=== PATIENT | female | born 1975 | race Caucasian/White ===

== ENCOUNTER → 2019-09-22 | Outpatient (CLI) | payer BC ==
--- NOTE | 2019-09-22 20:21 | CONS ---
CONSULTATION DATE OF SERVICE: 09/22/2019 This patient is a 44-year-old lady who has been evaluated for obstructive sleep apnea- hypopnea syndrome. HISTORY OF PRESENT ILLNESS/SLEEP-WAKE EVALUATION: Patient has a history of obstructive sleep apnea diagnosed about 10 years ago. At that time she was started on treatment with CPAP, but she did not feel comfortable with the machine and was not able to use it. Also at that time she lost weight and started to sleep better. At present, her weight has increased again and she has symptoms of sleep apnea. Her sleep schedule on weekdays is from 10 p.m. to 6 or 7 a.m. and on weekends from midnight until 9 a.m. Sometimes she has problems with falling asleep, although there is no TV in the bedroom. She sleeps in different positions, including side and stomach. She snores. She grinds her teeth and has episodes of restless legs. She wakes up from sleep 2 times with nocturia. She also has legs thrashing. No history of hypnagogic hallucinations, sleep paralysis or cataplexy. In the morning the patient wakes up tired, has difficulties paying attention, has problems with memory, concentration, irritability, depression. [place] Sleepiness Scale is increased at 10. PAST MEDICAL HISTORY: Hypertension. Not on the control with several medications, according to patient. Pre-diabetes, hyperlipidemia, history of asthma. PAST SURGICAL HISTORY: Cholecystectomy, endometrial ablation, left lung resection for benign tumor many years ago, tubal ligation. MEDICATIONS: Qvar inhaler, amlodipine, metformin, Viibryd, atorvastatin, metoprolol. SOCIAL HISTORY: Negative for smoking or using alcohol. FAMILY HISTORY: Headaches, insomnia, mental illness. REVIEW OF SYSTEMS: Awakenings from sleep, sleepiness during the day. PHYSICAL EXAMINATION: GENERAL: A pleasant lady without distress. VITAL SIGNS: BP 137/89, HR 72, RR 16, height 5 feet 3 inches, weight 285. Body mass index 50.4. Temperature 98.0, oxygen saturation at room air 96%. HEENT: PERRLA, EOMI. Evaluation of oropharynx showed tongue protrudes midline. Low position of soft palate. Mallampati IV. NECK: Supple. No JVD. Thyroid is not palpable. Neck measures 15-1/2 inches in circumference. LUNGS: Clear to percussion and to auscultation. Good air exchange. No wheezing or rhonchi. HEART: S1, S2 regular. No murmurs, gallops or rubs. ABDOMEN: Obese. EXTREMITIES: No clubbing or cyanosis. TURRET LATHE OPERATOR: Awake, alert, and oriented X3. Cranial nerves 2 to 7 intact. There is no fasciculation or atrophy. noted. No focal deficits observed. IMPRESSION: 1. Snoring, multiple awakenings from sleep, low position of soft palate, history of obstructive sleep apnea in the past, sleepiness; obstructive sleep apnea-hypopnea syndrome. 2. Morbid obesity; BMI 50.4. 3. Asthma. 4. Hypertension. 5. History of pre-diabetes. 6. Hyperlipidemia. 7. Status post cholecystectomy. 8. Status post endometrial ablation. 9. 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 10.Status post tubal ligation. PLAN: 1. Polysomnography for evaluation of patient's breathing during sleep. 2. CPAP/BiPAP titration if sleep study confirms obstructive sleep apnea-hypopnea syndrome. 3. Preferable position during sleep on the side. 4. No driving if patient feels any sleepiness. 5. I will see patient for follow up visit to explain results of testing and following plan. Thank you very much for referring this patient for consultation. Sincerely, Chaparro Hernandez MD, PhD, FAASM Diplomat of Citizen Of [place] Board of Medical Specialties Citizen Of [place] Board of Internal Medicine Weight And Test Bar Clerk of [facility] [place] MMODL / GALLON: [id number] /
== END | disposition home or self-care (01) ==
LOC: SLEEP 15:01
PROVIDERS: ATTEND Internal Medicine
DX: G47.33 Obstructive sleep apnea (adult) (pediatric) (principal); E66.01 Morbid (severe) obesity due to excess calories; Z68.43 Body mass index [BMI] 50.0-59.9, adult; J45.909 Unspecified asthma, uncomplicated; I10 Essential (primary) hypertension; E78.5 Hyperlipidemia, unspecified; Z86.39 Personal history of other endocrine, nutritional and metabolic disease; Z90.49 Acquired absence of other specified parts of digestive tract; Z98.51 Tubal ligation status; Z90.2 Acquired absence of lung [part of]; Z98.890 Other specified postprocedural states; Z79.84 Long term (current) use of oral hypoglycemic drugs; Z79.899 Other long term (current) drug therapy
CPT/HCPCS: 99211

== ENCOUNTER → 2020-01-11 | Outpatient (CLI) | payer BC ==
--- NOTE | 2020-01-11 20:43 | SFUN ---
SLEEP CENTER FOLLOW UP NOTE DATE OF SERVICE: 01/11/2020 This is a 44-year-old lady who has been followed in the sleep Center for treatment of obstructive sleep apnea-hypopnea syndrome. Recently, patient had a diagnostic sleep study and CPAP titration and after that she was started on treatment with CPAP. Today is her first visit after she was started on CPAP therapy. Patient feels better while she is using CPAP, sleeping better and feels better during the day. [place] Sleepiness Scale today is 8. I checked the CPAP unit. Range of the pressure 4-10, average pressure 8.8, usage 29/30 nights for more than 4 hours with average usage 7.6 hours per night, which is good hours. Leak is absent at 0 L/minute and apnea-hypopnea index is only 0.8, which is perfect. I spent 25 minute with the patient. MEDICATIONS: Amlodipine 10 mg once a day, metformin 500 mg once a day, Atorvastatin 20 mg once a day, metoprolol 10 mg twice a day. PHYSICAL EXAMINATION: GENERAL: A pleasant patient without any distress. VITAL SIGNS: BP 158/76, HR 68, RR 15, weight 291, temp 98.2, oxygen saturation at room air 99%. HEENT: PERRLA, EOMI, evaluation of oropharynx showed tongue protrudes midline. Low position of soft palate. NECK: Supple, no JVD. Thyroid is not palpable. LUNGS: Clear to percussion and to auscultation. Good air exchange. No wheezing or rhonchi. HEART: S1, S2 regular. No murmurs, gallops, or rubs. Obese. ABDOMEN: Soft and nontender. Bowel sounds are present. No organomegaly appreciated. EXTREMITIES: No clubbing or cyanosis. TIRE SPOTTER: Awake, alert, and oriented X3. Cranial nerves 2 to 7 intact. There is no fasciculation or atrophy. noted. No focal deficits observed. IMPRESSION: 1. Obstructive sleep apnea-hypopnea syndrome. Patient demonstrated practically 100% compliance with treatment and benefitting from treatment. 2. Obesity. 3. Asthma. 4. Hypertension. 5. Hyperlipidemia. 6. Status post cholecystectomy. PLAN: 1. Patient will continue to use PAP equipment every night for the whole night. 2. Sleep hygiene with regular time in bed for at least 7-1/2 to 8 hours. 3. Precautions related to driving. No driving if feeling sleepiness. 4. I will maintain all necessary prescription for PAP supplies including mask, tube, filters. 5. Watching weight. 6. No driving if feeling sleepiness. 7. Follow-up visit in 6 months or earlier if patient has any problems. Thank you very much for allowing me to participate in the management of your patient. Sincerely, Chaparro Hernandez MD, PhD, FAASM Diplomat of [place] Board of Medical Specialties [place] Board of Internal Medicine Instructional Technology Facilitator of [facility] [place] MMODL / IJN: [id number] /
== END | disposition home or self-care (01) ==
LOC: SLEEP 13:46
PROVIDERS: ATTEND Internal Medicine
DX: G47.33 Obstructive sleep apnea (adult) (pediatric) (principal); J45.909 Unspecified asthma, uncomplicated; I10 Essential (primary) hypertension; E78.5 Hyperlipidemia, unspecified; E66.9 Obesity, unspecified; Z90.49 Acquired absence of other specified parts of digestive tract; Z99.89 Dependence on other enabling machines and devices; Z79.899 Other long term (current) drug therapy; Z79.84 Long term (current) use of oral hypoglycemic drugs

== ENCOUNTER → 2020-08-23 | Outpatient (CLI) | payer BC ==
--- NOTE | 2020-08-23 22:40 | SFUN ---
SLEEP CENTER FOLLOW UP NOTE DATE OF SERVICE: 08/23/2020 45-year-old lady has been followed in Sleep Center for treatment of obstructive sleep apnea-hypopnea syndrome. Patient continued to use her CPAP equipment every night for the whole night. No snoring with the machine. The patient received her supplies. [place] Sleepiness Scale slightly increased today to 10. I checked her CPAP unit. Range of the pressure 4-10, average 9 cm of water. Usage is every night and 29 out of 30 nights for more than 4 hours, averaged 7.1 hours per night. Leak is only 1 L/minute. Apnea-hypopnea index 0.6, which is absolutely perfect. MEDICATIONS: Metoprolol 10 mg twice a day, hydrochlorothiazide 25 mg once a day, metformin 500 mg once a day, atorvastatin 20 mg once a day, Q-Yumiko inhaler. PHYSICAL EXAMINATION: GENERAL: Patient in no distress. BP 132/82, HR 78, RR15, height 5 feet 3-1/2 inches, weight 292 pounds, BMI 50.9, temperature 97.2, oxygen saturation on room air 96%. HEENT: Oropharynx low position of soft palate. NECK: Supple, no JVD. Thyroid is not palpable. LUNGS: Clear to percussion and to auscultation. Good air exchange. No wheezing or rhonchi. HEART: S1, S2 regular. No murmurs, gallops, or rubs. ABDOMEN: Obese. Soft and nontender. Bowel sounds are present. No organomegaly appreciated. EXTREMITIES: No clubbing or cyanosis. SINTERING PRESS OPERATOR: Awake, alert, and oriented X3. Cranial nerves 2 to 7 intact. There is no fasciculation or atrophy. noted. No focal deficits observed. IMPRESSION: 1. Obstructive sleep apnea-hypopnea syndrome. Patient demonstrated great compliance with treatment benefitting from treatment, normal respiration on CPAP. 2. Obesity. 3. Asthma. 4. Hypertension. 5. Hyperlipidemia. 6. Status post cholecystectomy. PLAN: 1. Patient will continue to use PAP equipment every night for the whole night. 2. Sleep hygiene with regular time in bed for at least 7-1/2 to 8 hours. 3. Precautions related to driving. No driving if feeling sleepiness. 4. I will maintain all necessary prescription for PAP supplies including mask, tube, filters. 5. Watching weight. 6. Follow-up visit in 6 months or earlier if patient has any problems. Thank you very much for allowing me to participate in management of your patient. Sincerely, Chaparro Hernandez MD, PhD, FAASM Diplomat of [place] Board of Medical Specialties [place] Board of Internal Medicine Licensed Nursing Assistant of [facility] [place] MMCLAUDINEL / MEGGAN: [id number] /
== END ==
LOC: SLEEP 15:35
PROVIDERS: ATTEND Internal Medicine
DX: G47.33 Obstructive sleep apnea (adult) (pediatric) (principal); E66.9 Obesity, unspecified; J45.909 Unspecified asthma, uncomplicated; I10 Essential (primary) hypertension; E78.5 Hyperlipidemia, unspecified; Z90.49 Acquired absence of other specified parts of digestive tract; Z79.899 Other long term (current) drug therapy; Z68.43 Body mass index [BMI] 50.0-59.9, adult

== ENCOUNTER → 2021-03-07 | Outpatient (CLI) | payer BC ==
--- NOTE | 2021-03-07 22:22 | SFUN ---
SLEEP CENTER FOLLOW UP NOTE DATE OF SERVICE: 03/07/2021 45-year-old lady has been followed in Sleep Center for treatment of obstructive sleep apnea-hypopnea syndrome. Patient continued to use her CPAP equipment every night. No problems with getting supplies. No snoring. [place] Sleepiness Scale slightly increased today to 10. I checked her CPAP unit. Range of the pressure 4-10, average pressure 9.5 cm of water. Usage is 100% of nights more than 4 hours, average 7.2 hours per night. Leak is 0 L/minute which is absolutely perfect. Apnea-hypopnea index 0.5 which is totally normal. Air filter in good shape. MEDICATIONS: Metoprolol 10 mg twice a day, hydrochlorothiazide 25 mg once a day, metformin 500 once a day, atorvastatin 20 mg lasted at once a day, amlodipine once a day. PHYSICAL EXAMINATION: GENERAL: Patient in no distress. BP 132/93, HR 69, RR 18, height 5 feet 4 inches, weight 297.2, body mass index 50.9, the patient increased her weight on about 5 pounds since previous visit. Temperature 97.5, oxygen saturation at room air 97%. Oropharynx: Low position of soft palate. NECK: Supple, no JVD. Thyroid is not palpable. LUNGS: Clear to percussion and to auscultation. Good air exchange. No wheezing or rhonchi. HEART: S1, S2 regular. No murmurs, gallops, or rubs. ABDOMEN: Soft and nontender. Bowel sounds are present. No organomegaly appreciated. EXTREMITIES: No clubbing or cyanosis. CORPORATE TRAVEL CONSULTANT: Awake, alert, and oriented X3. Cranial nerves 2 to 7 intact. There is no fasciculation or atrophy. noted. No focal deficits observed. IMPRESSION: 1. Obstructive sleep apnea-hypopnea syndrome patient demonstrated 100% compliance with treatment. Normal respiration on CPAP. 2. Obesity, patient increased weight 5 pounds body mass index 50.9. 3. Asthma. 4. Hypertension. 5. Hyperlipidemia. 6. Status post cholecystectomy. PLAN: Thank you very much for allowing me to participate in management of your patient. Sincerely, Chaparro Hernandez MD, PhD, FAASM Diplomat of [place] Board of Medical Specialties Sleep Medicine Board of [place] Board of Internal Medicine Director Of Medicare of [facility] [place] MMODL / IJN: [id number] /
== END | disposition home or self-care (01) ==
LOC: SLEEP 11:12
PROVIDERS: ATTEND Internal Medicine
DX: G47.33 Obstructive sleep apnea (adult) (pediatric) (principal); E66.9 Obesity, unspecified; J45.909 Unspecified asthma, uncomplicated; I10 Essential (primary) hypertension; E78.5 Hyperlipidemia, unspecified; Z68.43 Body mass index [BMI] 50.0-59.9, adult; Z90.49 Acquired absence of other specified parts of digestive tract

== ENCOUNTER → 2021-09-05 | Outpatient (CLI) | payer BC ==
--- NOTE | 2021-09-05 11:49 | P.PN ---
Subjective DATE: 09/05/2021 FOLLOW UP VISIT. Patient with obstructive sleep apnea hypopnea syndrome return to sleep center for follow-up visit. Information from previous visit have been reviewed. Patient is using PAP equipment every night for the whole night, getting PAP supplies in time. The patient does not have significant problems with the mask, PAP unit and humidification. [place] sleepiness scale is 8. I checked PAP unit. PAP unit pressure 4-10 average 9.8 cm H2O. Usage is 100 % for more then 4 hours, average 7.5 hours per night. Leak is 2 l/m, which is in acceptable range. Apnea Hypopnea Index is 0.6, which is perfect. MEDICATIONS:1. Hydrochlorothiazide 25 mg once a day 2. Amlodipine 2.5 mg once a day 3. Metoprolol extended release 25 mg twice a day 4. Atorvastatin 40 mg once a day 5. Vibryd 40 mg once a day During physical exam: GENERAL: A pleasant patient without any distress. VITAL SIGNS: BP 116/70, HR 67, RR 16 , weight 305.8, temperature 97.5, oxygen saturation at room air 97 % . HEENT: PERRLA, EOMI.low position of soft palate, Mallapati 34 . NECK: Supple. No JVD. LUNGS: Clear to percussion and to auscultation. Good air exchange. No wheezing or rhonchi. HEART: S1, S2 regular. ABDOMEN: Soft and nontender. Obese EXTREMITIES: No clubbing or cyanosis. LIPCOAT SPRAYER: Awake, alert, and oriented x3. No focal deficit. Impressions: 1. Obstructive sleep apnea-hypopnea syndrome. Patient demonstrated great compliance with treatment, benefiting from treatment. 2. Obesity. 3. Hypertension. 4. Asthma. 5. Hyperlipidemia. 6. Status post cholecystectomy. Plan: 1. Continue using PAP equipment every night for the whole night. 2. To change air filter at least 1-2 times per month. 3. PAP unit should stay lower then position of the head. 4. Advised patient to remove all remaining water from humidifier canister daily and make it dry after each usage. Refill canister with fresh distilled water before each usage. 5. Sleep hygiene with regular time in bed for at least 8 hours. 6. Precautions related to driving. No driving if feel any sleepiness. 7. I will maintain prescription for PAP supplies including mask, tube, filters. 8. Follow up visit in 6 months or earlier if patient has any problems. 9. Watching weight. Thank you very much for allowing me to participate in the management of your patient. Chaparro Hernandez MD, PhD, FAASM. Diplomat of [place] Board of Sleep Medicine, Sleep Medicine Board by [place] Board of Internal Medicine Inflatable Buildings Laminator of [facility] [place]
== END | disposition home or self-care (01) ==
LOC: SLEEP 11:14
PROVIDERS: ATTEND Internal Medicine
DX: G47.33 Obstructive sleep apnea (adult) (pediatric) (principal); E66.9 Obesity, unspecified; I10 Essential (primary) hypertension; J45.909 Unspecified asthma, uncomplicated; E78.5 Hyperlipidemia, unspecified; Z90.49 Acquired absence of other specified parts of digestive tract
CPT/HCPCS: 99212

== ENCOUNTER → 2022-05-21 | Outpatient (CLI) | payer BC ==
--- NOTE | 2022-05-27 08:17 | MM ---
Reason for Exam: Screening (asymptomatic). Last mammogram was performed 1 year(s) and 3 month(s) ago. Patient History: Menarche at age 12. First Full-Term at age 30. Risk Values: Marine 5 year model risk: 1.0%. NCI Lifetime model risk: 11.6%. Prior Study Comparison: 12/30/2019 Bilateral Screening Mammogram, Marek De Jesus . 01/29/2021 Bilateral Screening Mammogram, Marek De Jesus . Tissue Density: There are scattered fibroglandular densities. Findings: Analyzed By CAD. There is no suspicious group of microcalcifications or new suspicious mass in either breast. Overall Assessment: Negative, BI-RAD 1 Management: Screening Mammogram of both breasts in 1 year. A clinical breast exam by your physician is recommended on an annual basis and results should be correlated with mammographic findings. Electronically signed and approved by: Toy Joya M.D. Radiologis
== END | disposition home or self-care (01) ==
LOC: RADMAMWWP 07:51
PROVIDERS: ATTEND Family Medicine
DX: Z12.31 Encounter for screening mammogram for malignant neoplasm of breast (principal)
CPT/HCPCS: 77067

== ENCOUNTER → 2022-09-23 | Outpatient (CLI) | payer BC ==
--- NOTE | 2022-09-23 16:13 | US ---
EXAMINATION TYPE: US kidneys/renal and bladder DATE OF EXAM: 09/23/2022 COMPARISON: NONE CLINICAL INDICATION: Female, 47 years old with history of R80.9 PROTEINURIA; Proteinuria EXAM MEASUREMENTS: Right Kidney: 10.7 x 3.7 x 4.5 cm Left Kidney: 10.5 x 4.8 x 4.1 cm *Technical limitations due to large amount of overlying bowel content Right Kidney: no evidence of hydronephrosis Left Kidney: no evidence of hydronephrosis Bladder: appears wnl Bilateral Jets seen: no There is no evidence for hydronephrosis at this point in time. No nephrolithiasis is seen. No nico s are identified. The urinary bladder is anechoic. Bilateral ureteral jets are not seen. The liver appears hyperechoic compared to the right kidney echotexture. IMPRESSION: Limited examination due to overlying bowel gas. 1. No evidence for hydronephrosis or nephrolithiasis. 2. Hepatic steatosis.
== END | disposition home or self-care (01) ==
LOC: RADUSWWP 14:47
PROVIDERS: ATTEND Family Medicine
DX: K76.0 Fatty (change of) liver, not elsewhere classified (principal); R80.9 Proteinuria, unspecified
CPT/HCPCS: 76770

== ENCOUNTER → 2022-12-11 | Outpatient (CLI) | payer BC ==
--- NOTE | 2022-12-11 11:17 | P.PN ---
Subjective DATE: 12/11/2022 FOLLOW UP VISIT. Patient with obstructive sleep apnea hypopnea syndrome return to sleep center for follow-up visit. Information from previous visit have been reviewed. Patient is using PAP equipment every night for the whole night, getting PAP supplies in time. The patient does not have significant problems with the mask, PAP unit and humidification. [place] sleepiness scale is 9. I checked information from PAP unit. PAP unit pressure 4-10, average 5.9 cm H2O. Usage is 70 % for more then 4 hours, average 5.2 hours per night. Leak is perfect 1 l/m. Apnea Hypopnea Index is 0.5, which is normal. MEDICATIONS:1. Metoprolol 25 mg once a day 2. Amlodipine 25 mg once a day 3. Hydrochlorothiazide 25 mg once a day 4. Vyvanse 50 mg once a day 5. Vilazodone 40 mg once a day During physical exam: GENERAL: A pleasant patient without any distress. VITAL SIGNS: BP 126/86, HR 98, RR 18 , weight 224.2, temperature 98.1, oxygen saturation at room air 99 % . HEENT: PERRLA, EOMI.low position of soft palate, Mallapati 3-4 . NECK: Supple. No JVD. LUNGS: Clear to percussion and to auscultation. Good air exchange. No wheezing or rhonchi. HEART: S1, S2 regular. ABDOMEN: Soft and nontender.[] EXTREMITIES: No clubbing or cyanosis. HEAVY DUTY CUSTODIAN: Awake, alert, and oriented x3. No focal deficit. Sometimes patient feels that the pressure is CPAP unit too high. I adjusted range of the pressure to the level 4-8 centimeters of water. Impressions: 1. Obstructive sleep apnea-hypopnea syndrome. Patient demonstrated great compliance with treatment, benefiting from treatment. 2. Mild obesity, patient lost 44 pounds since previous visit. 3. Hypertension. 4. Asthma. 5. Status post cholecystectomy. 6. Hyperlipidemia. Plan: 1. Continue using PAP equipment every night for the whole night. 2. To change air filter at least 1-2 times per month. 3. PAP unit should stay lower then position of the head. 4. Advised patient to remove all remaining water from humidifier canister daily and make it dry after each usage. Refill canister with fresh distilled water before each usage. 5. Sleep hygiene with regular time in bed for at least 8 hours. 6. Precautions related to driving. No driving if feel any sleepiness. 7. I will maintain prescription for PAP supplies including mask, tube, filters. 8. Follow up visit in 6 months or earlier if patient has any problems. 9. Watching weight. Thank you very much for allowing me to participate in the management of your patient. Chaparro Hernandez MD, PhD, FAASM. Diplomat of [place] Board of Sleep Medicine, Sleep Medicine Board by [place] Board of Internal Medicine Beekeeper Farmer of [facility] [place]
== END ==
LOC: 3 N SLEEP 10:15
PROVIDERS: ATTEND Internal Medicine
DX: G47.33 Obstructive sleep apnea (adult) (pediatric) (principal); E66.9 Obesity, unspecified; I10 Essential (primary) hypertension; J45.909 Unspecified asthma, uncomplicated; E78.5 Hyperlipidemia, unspecified; Z98.890 Other specified postprocedural states; Z79.899 Other long term (current) drug therapy; Z90.49 Acquired absence of other specified parts of digestive tract; Z99.89 Dependence on other enabling machines and devices; Z79.51 Long term (current) use of inhaled steroids
CPT/HCPCS: 99212

== ENCOUNTER 2022-12-12 11:25 | Day surgery (SDC) | payer BC ==
[2022-12-09 15:50] VITALS: BMI 38.9
[~2022-12-12 11:25] MED LIST: LACTATED RINGERS 1,000 ML IV SCH; LIDOCAINE 1% (10MG/ML) FOR IV START INTRADERMA PRN
[2022-12-12 12:49] VITALS: RESP 16; TEMP 96.8
[2022-12-12 12:50] LABS: Glucose,Whole Blood 96 mg/dL (70-110)
[2022-12-12] MEDS ORDERED: PROPOFOL 10 MG/ML 20 ML VIAL IV ONE (12:57)
--- NOTE | 2022-12-12 13:15 | P.PCN ---
Date of Procedure: 12/12/22 Procedure(s) Performed: BRIEF HISTORY: Patient is a 47-year-old pleasant female scheduled for an elective colonoscopy as a part of screening for colon cancer. PROCEDURE PERFORMED: Colonoscopy. PREOPERATIVE DIAGNOSIS: Screening for colon cancer. IV sedation per Anesthesia. PROCEDURE: After informed consent was obtained, the patient, was brought into the endoscopy unit. IV sedation was administered by Anesthesia under continuous monitoring. Digital rectal examination was normal. Initially the Olympus CF-160 flexible video colonoscope was then inserted in the rectum, gradually advanced into the cecum without any difficulty. Careful examination was performed as the scope was gradually being withdrawn. Ileocecal valve and the appendiceal orifice were visualized and appeared normal. Prep was excellent. Mucosa of the cecum, ascending colon, transverse colon, descending colon, sigmoid colon, and rectum appeared normal. Retroflexion was performed in the rectum and no lesions were seen. The patient tolerated the procedure well. IMPRESSION: Normal-appearing colon from rectum to cecum with no evidence of colorectal neoplasia . RECOMMENDATIONS: Findings of this examination were discussed with the patient as well as a family. She was advised to have a repeat screening colonoscopy in 10 years..
[2022-12-12 13:46] VITALS: BP 124/89; PULSE 72
== END 2022-12-12 13:55 | disposition home or self-care (01) ==
LOC: ORWHC2ENDO 11:25
PROVIDERS: ATTEND Internal Medicine Gastroenterology
DX: Z12.11 Encounter for screening for malignant neoplasm of colon (principal); I10 Essential (primary) hypertension; J45.909 Unspecified asthma, uncomplicated; G47.33 Obstructive sleep apnea (adult) (pediatric); E11.9 Type 2 diabetes mellitus without complications; F41.9 Anxiety disorder, unspecified; F32.A Depression, unspecified; F43.10 Post-traumatic stress disorder, unspecified; N28.9 Disorder of kidney and ureter, unspecified; Z79.51 Long term (current) use of inhaled steroids; Z79.84 Long term (current) use of oral hypoglycemic drugs; Z79.811 Long term (current) use of aromatase inhibitors; Z79.899 Other long term (current) drug therapy
CPT/HCPCS: 81025; 45378; J2704

== ENCOUNTER → 2023-08-13 | Outpatient (CLI) | payer BC ==
[2023-08-13 16:02] VITALS: BP 121/86; PULSE 90; RESP 18; TEMP 97.8
--- NOTE | 2023-08-13 17:39 | P.PROGSL ---
Subjective DATE: 08/13/2023 FOLLOW UP VISIT. Patient with obstructive sleep apnea hypopnea syndrome return to sleep center for follow-up visit. Information from previous visit have been reviewed. Patient is using PAP equipment every night for the whole night, getting PAP supplies in time. The patient does not have significant problems with the mask, PAP unit and humidification. [place] sleepiness scale is slightly increased to 11. I checked information from PAP unit. PAP unit pressure 4-8, average 7.6 cm H2O. Usage is 90% for more then 4 hours, average 4.8 hours per night. Leak is 4 l/m, which is in acceptable range. Apnea Hypopnea Index is 0.6, which is normal. MEDICATIONS: Please see below During physical exam: GENERAL: A pleasant patient without any distress. VITAL SIGNS: Please see below, weight is 220.6 pounds, BMI 39.5. HEENT: PERRLA, EOMI.low position of soft palate, Mallapati 34. NECK: Supple. No JVD. LUNGS: Clear to percussion and to auscultation. Good air exchange. No wheezing or rhonchi. HEART: S1, S2 regular. ABDOMEN: Soft and nontender.[] EXTREMITIES: No clubbing or cyanosis. CASCADE OPERATOR: Awake, alert, and oriented x3. No focal deficit. Impressions: 1. Obstructive sleep apnea-hypopnea syndrome. Patient demonstrated great compliance with treatment, benefiting from treatment. 2. Obesity BMI 39.5, patient lost 4 pounds comparing with previous visit. 3. Hypertension. 4. Asthma. 5. Hyperlipidemia. 6. Status post cholecystectomy. Plan: 1. Continue using PAP equipment every night for the whole night. 2. To change air filter at least 1-2 times per month. 3. PAP unit should stay lower then position of the head. 4. Advised patient to remove all remaining water from humidifier canister daily and make it dry after each usage. Refill canister with fresh distilled water before each usage. 5. Sleep hygiene with regular time in bed for at least 8 hours. 6. Precautions related to driving. No driving if feel any sleepiness. 7. I will maintain prescription for PAP supplies including mask, tube, filters. 8. Watching and losing weight. 9.Follow up visit in 6 months or earlier if patient has any problems. Thank you very much for allowing me to participate in the management of your patient. Chaparro Hernandez MD, PhD, FAASM. Diplomat of [place] Board of Sleep Medicine, Sleep Medicine Board by [place] Board of Internal Medicine Fireproof Door Maker of [facility] [place] Objective - Vital Signs Vital Signs: Vital Signs Temp 97.8 F 08/13/23 16:01 Pulse 90 08/13/23 16:01 Resp 18 08/13/23 16:01 BP 121/86 08/13/23 16:01 Pulse Ox 98 08/13/23 16:01 FiO2 Intake & Output 08/12/23 08/13/23 08/13/23 18:59 06:59 18:59 Weight 99.96 kg Home Medications: Home Medications Medication Instructions Recorded Confirmed Type Albuterol Inhaler [Ventolin Hfa 1 - 2 puff INHALATION Q6H PRN 12/09/22 12/09/22 History Inhaler] Finerenone [Kerendia] 1 tab PO DAILY 12/09/22 08/13/23 History Lisdexamfetamine Dimesylate 40 mg PO QAM 12/09/22 08/13/23 History [Vyvanse] Metoprolol Succinate [Toprol XL] 25 mg PO DAILY 12/09/22 08/13/23 History Semaglutide [Wegovy] 2.4 mg SQ WEEKLY 12/09/22 08/13/23 History Vilazodone HCl 40 mg PO DAILY 12/09/22 08/13/23 History amLODIPine BESYLATE 2.5 mg PO DAILY 12/09/22 08/13/23 History hydroCHLOROthiazide 25 mg PO DAILY 12/09/22 08/13/23 History metFORMIN HCL 500 mg PO AC-SUPPER 12/09/22 12/09/22 History
== END ==
LOC: 3 N SLEEP 15:30
PROVIDERS: ATTEND Internal Medicine
DX: G47.33 Obstructive sleep apnea (adult) (pediatric) (principal); E66.9 Obesity, unspecified; I10 Essential (primary) hypertension; J45.909 Unspecified asthma, uncomplicated; E78.5 Hyperlipidemia, unspecified; Z90.49 Acquired absence of other specified parts of digestive tract; Z68.39 Body mass index [BMI] 39.0-39.9, adult; Z99.89 Dependence on other enabling machines and devices; Z79.899 Other long term (current) drug therapy
CPT/HCPCS: 99212

== ENCOUNTER → 2024-05-18 | Outpatient (CLI) | payer BC ==
[2024-05-18 16:21] VITALS: BP 120/73; PULSE 70; RESP 16; TEMP 98.1
--- NOTE | 2024-05-18 17:53 | P.PROGSL ---
Subjective DATE: 05/18/2024 FOLLOW UP VISIT. Patient with obstructive sleep apnea hypopnea syndrome return to sleep center for follow-up visit. Information from previous visit have been reviewed. Patient is using PAP equipment every night for the whole night, getting PAP supplies in time. The patient does not have significant problems with the mask, PAP unit and humidification. Schulter sleepiness scale is 9. I checked information from PAP unit. PAP unit pressure 4-8, average 7.8 cm H2O. Usage is 90% for more then 4 hours, average 5.1 hours per night. Leak is very minimal 1 l/m. Apnea Hypopnea Index is 0.5, which is perfect. MEDICATIONS have been reviewed, please see below. During physical exam: GENERAL: A pleasant patient without any distress. VITAL SIGNS: Please see below, weight is 255.2 lbs. HEENT: PERRLA, EOMI.low position of soft palate, Mallapati 34. NECK: Supple. No JVD. LUNGS: Clear to percussion and to auscultation. Good air exchange. No wheezing or rhonchi. HEART: S1, S2 regular. ABDOMEN: Soft and nontender.[] EXTREMITIES: No clubbing or cyanosis. PATIENT RELATIONS LIAISON: Awake, alert, and oriented x3. No focal deficit. Impressions: 1. Obstructive sleep apnea-hypopnea syndrome. Patient demonstrated great compliance with treatment, benefiting from treatment. 2. Obesity, BMI 45.8, patient increased 5 pounds comparing with previous visit. 3. Hypertension. 4. Asthma. 5. Hyperlipidemia. 6. Status post cholecystectomy. Plan: 1. Continue using PAP equipment every night for the whole night. 2. Sleep hygiene with regular time in bed for at least 7.5-8 hours 3. PAP unit should stay lower then position of the head. 4. Advised patient to remove all remaining water from humidifier canister daily and make it dry after each usage. Refill canister with fresh distilled water before each usage. 5. Watching and losing weight. 6. Precautions related to driving. No driving if feel any sleepiness. 7. I will maintain prescription for PAP supplies including mask, tube, filters. 8. Follow up visit in 8 months or earlier if patient has any problems. Thank you very much for allowing me to participate in the management of your patient. Chaparro Hernandez MD, PhD, FAASM. Diplomat of [place] [employer], Sleep Medicine Board by [place] [employer] [facility] [place] Objective - Vital Signs Vital Signs: Vital Signs Temp 98.1 F 05/18/24 16:18 Pulse 70 05/18/24 16:18 Resp 16 05/18/24 16:18 BP 120/73 05/18/24 16:18 Pulse Ox 98 05/18/24 16:18 FiO2 Intake & Output 05/17/24 05/18/24 05/18/24 18:59 06:59 18:59 Weight 115.723 kg Home Medications: Home Medications Medication Instructions Recorded Confirmed Type Albuterol Inhaler [Ventolin Hfa 1 - 2 puff INHALATION Q6H PRN 12/09/22 12/09/22 History Inhaler] Finerenone [Kerendia] 1 tab PO DAILY 12/09/22 05/18/24 History Lisdexamfetamine Dimesylate 40 mg PO QAM 12/09/22 08/13/23 History [Vyvanse] Metoprolol Succinate [Toprol XL] 25 mg PO DAILY 12/09/22 05/18/24 History Semaglutide [Wegovy] 2 mg SQ WEEKLY 12/09/22 05/18/24 History Vilazodone HCl 40 mg PO DAILY 12/09/22 05/18/24 History amLODIPine BESYLATE 2.5 mg PO DAILY 12/09/22 05/18/24 History hydroCHLOROthiazide 25 mg PO DAILY 12/09/22 05/18/24 History metFORMIN HCL 500 mg PO AC-SUPPER 12/09/22 12/09/22 History Atorvastatin [Lipitor] 20 mg PO DAILY 05/18/24 05/18/24 History
== END ==
LOC: 3 N SLEEP 15:44
PROVIDERS: ATTEND Internal Medicine
DX: G47.33 Obstructive sleep apnea (adult) (pediatric) (principal); I10 Essential (primary) hypertension; E78.5 Hyperlipidemia, unspecified; J45.909 Unspecified asthma, uncomplicated; E66.9 Obesity, unspecified; Z68.42 Body mass index [BMI] 45.0-49.9, adult; Z90.49 Acquired absence of other specified parts of digestive tract
CPT/HCPCS: 99212

== ENCOUNTER → 2024-05-31 | Outpatient (CLI) | payer BC ==
--- NOTE | 2024-05-31 09:21 | MM ---
Reason for Exam: Screening (asymptomatic). Last mammogram was performed 2 year(s) and 1 month(s) ago. Patient History: Menarche at age 12. First Full-Term at age 30. Patient has history of breast feeding. Risk Values: Marine 5 year model risk: 1.1%. NCI Lifetime model risk: 11.1%. Prior Study Comparison: 12/30/2019 Bilateral Screening Mammogram, [facility] . 01/29/2021 Bilateral Screening Mammogram, [facility] . 05/21/2022 Bilateral MG screening mammo w CAD, [facility]. Tissue Density: There are scattered areas of fibroglandular density. Findings: Analyzed By CAD. There is no suspicious group of microcalcifications or new suspicious mass in either breast. Overall Assessment: Negative, BI-RAD 1 Management: Screening Mammogram of both breasts in 1 year. Patient should continue monthly self-breast exams. A clinical breast exam by your physician is recommended on an annual basis. This exam should not preclude additional follow-up of suspicious palpable abnormalities. Note on Marine scores and lifetime risk: 1. A Marine score greater than 3% is considered moderate risk. If this is the case, consider specialist referral to assess eligibility for a risk reducing agent. 2. If overall lifetime risk for the development of breast cancer is 20% or higher, the patient may qualify for future screening with alternating mammogram and breast MRI. [facility], , 05/31/2024 9:18 AM. Electronically signed and approved by: Carmel Macias M.D. Radiologist
== END | disposition home or self-care (01) ==
LOC: RADMAMWWP 07:23
PROVIDERS: ATTEND Family Medicine
DX: Z12.31 Encounter for screening mammogram for malignant neoplasm of breast (principal); R92.323 Mammographic fibroglandular density, bilateral breasts
CPT/HCPCS: 77067